=== PATIENT | female | born 1970 | race Caucasian/White ===

== ENCOUNTER 2018-09-05 13:23 | Emergency (ER) | payer BC ==
[2018-09-05 13:44] VITALS: BP 148/90
--- NOTE | 2018-09-05 14:04 | UC ---
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 WHILE ATTEMPTING TO RESCUE THE KITTEN IT TURNED AROUND AND BIT HER ON THE LEFT INDEX FINGER. SHE TOOK THE ANIMAL TO THE [facility] [place] UP TO DATE TETANUS. - History of Current Complaint Chief Complaint: UCBiteInjury Stated Complaint: CAT BITE Time Seen by Provider: 09/05/18 13:59 Hx Obtained From: Patient Hx Last Menstrual Period: 2 mo Severity Currently: Moderate Severity Initially: Moderate Pain Intensity: 0 Pain Scale Used: 0-10 Numeric Onset/Duration: Sudden Onset, Lasting Hours, Still Present Type of Bite: Wild Animal Has Animal Been Immunized?: No Character: Abrasion/Laceration Aggravating Factor(s): Nothing Alleviating Factor(s): Nothing Associated Signs And Symptoms: Negative: Fever, Erythema, Drainage, Swelling, Lymphadenopathy Hx of Bite: Provoked by: - TRYING TO RESCUE ANIMAL - Allergies/Home Medications Allergies/Adverse Reactions: Allergies Allergy/AdvReac Type Severity Reaction Status Date / Time Penicillins Allergy Unknown Verified 09/05/18 13:45 Reaction Details PMH/Surg Hx/FS Hx/Imm Hx Respiratory History: Asthma - Surgical History Surgical History: None Surgery Procedure, Year, and Place: [place] [facility] [place] [facility] [place] - Family History Known Family History: Positive: Non-Contributory - Social History Alcohol Use: Rare Substance Use Type: None Smoking Status (MU): Never Smoked Tobacco - Immunization History Most Recent Tetanus Shot: 2018 Review of Systems All Other Systems Reviewed And Are Negative: Yes Constitutional: Positive: Negative Skin: Positive: Other - ABRASION/CAT BITE LEFT DISTAL INDEX FINGER LATERAL SURFACE Respiratory: Positive: Negative Cardiovascular: Positive: Negative Gastrointestinal: Positive: Negative Musculoskeletal: Positive: Negative Physical Exam Triage Information Reviewed: Yes Appearance: Well-Appearing, No Pain Distress, Well-Nourished Vital Signs: Initial Vital Signs Temp 99.1 F 09/05/18 13:40 Pulse 99 09/05/18 13:40 Resp 16 09/05/18 13:40 BP 148/90 09/05/18 13:40 Pulse Ox 98 09/05/18 13:40 Vital Signs Reviewed: Yes Eyes: Positive: Conjunctiva Clear ENT: Positive: Hearing grossly normal Neck: Positive: Supple Respiratory: Positive: No respiratory distress, No accessory muscle use Cardiovascular: Positive: Pulses Normal Abdomen Description: Positive: Soft Musculoskeletal: Positive: ROM Intact, No Edema Neurological: Positive: Alert Psychological: Positive: Age Appropriate Behavior Skin: Positive: Other - 1CM ABRASION LEFT DISTAL INDEX FINGER LATERAL SURFACE Diagnostics - Radiology LEFT INDEX FINGER XRAY Radiology Interpretation Completed By: Radiologist - UNREMARKABLE Bite Injury Course/Dx - Course Course Of Treatment: PATIENT WITH PENICILLIN ALLERGY LISTED BUT STATES SHE IS NOT SURE IF SHE REALLY IS ALLERGIC TO PENICILLINS. HAS TAKEN AUGMENTIN IN THE PAST WITH NO PROBLEM SO WILL PRESCRIBE AGAIN TODAY. SPOKE TO THE HEALTH DEPARTMENT. KITTEN WILL BE MONITORED AND PATIENT WILL BE NOTIFIED IF ANY SIGNS OF ILLNESS. NO INDICATION TO BEGIN RABIES PROPHYLAXIS TODAY. - Differential Dx/Diagnosis Provider Diagnoses: CAT BITE LEFT INDEX FINGER Discharge - Sign-Out/Discharge Documenting (check all that apply): Patient Departure All imaging exams completed and their final reports reviewed: Yes - Discharge Plan Condition: Stable Disposition: HOME Prescriptions: Amoxicillin/Clavulanate TAB* [Augmentin TAB 875*] 875 mg PO BID #20 tab Patient Education Materials: Animal Bite (ED) Referrals: Stormy Deshpande MD [Primary Care Provider] - If Needed Additional Instructions: TAKE THE AUGMENTIN TWICE DAILY FOR THE FULL 10 DAYS TO PREVENT INFECTION. X- RAY TODAY UNREMARKABLE FOR FRACTURE. SEEK FOLLOW-UP IF YOU DEVELOP SPREADING REDNESS OF THE SKIN, PURULENT DRAINAGE, FEVER, INCREASED PAIN OR ANY OTHER CONCERNING SYMPTOMS. THE HEALTH DEPARTMENT/[facility] WILL MONITOR THE ANIMAL AND NOTIFY YOU IF ANY SIGNS OF ILLNESS. - Billing Disposition and Condition Condition: STABLE Disposition: Home
== END 2018-09-05 14:35 | disposition home or self-care (01) ==
LOC: UCEAST 13:23
DX: S60.471A Other superficial bite of left index finger, initial encounter (principal); Z88.0 Allergy status to penicillin; W55.01XA Bitten by cat, initial encounter; Y92.9 Unspecified place or not applicable
CPT/HCPCS: 73140; 99202; G0463

== ENCOUNTER 2024-03-30 19:35 | Observation (INO) ==
[2024-03-30 20:12] LABS: Urine Appearance Clear; Urine Bilirubin Negative (Negative); Urine Blood 1+ (Negative); Urine Color Colorless; Urine Glucose Negative (Negative); Urine Ketones Negative (Negative); Urine Nitrite Negative (Negative); Urine Protein Negative (Negative); Urine Specific Gravity 1.012 (1.002-1.030); Urine Urobilinogen Negative (Negative); Urine pH 5.5 (5.0-8.0)
[2024-03-30 20:20] LABS: Urine Bacteria Absent /HPF (Absent); Urine Red Blood Cell 1+(3-5/hpf) /HPF (0-Trace); Urine Squamous Epithelial Cell Present /HPF (Absent); Urine White Blood Cell 1+(6-10/hpf) /HPF (0-Trace)
[2024-03-30 20:54] LABS: ABS Basophils 0.1 10^3/uL (0.0-0.1); ABS Eosinophils 0.3 10^3/uL (0.0-0.5); ABS Lymphocytes 3.7 10^3/uL (1.0-4.8); ABS Monocytes 1.2 10^3/uL (0.0-0.9); ABS Neutrophils 4.4 10^3/uL (1.5-7.6); ABS Nucleated RBC 0.01 10^3/ul; Eosinophil % 3.1 %; Hematocrit 41.9 % (35-45); Hemoglobin 14.5 g/dL (11.5-14.3); Lymphocyte % 38.4 %; Mean Corpuscular Hemoglobin 32.3 pg (27-33); Mean Corpuscular Hgb Conc 34.5 g/dL (31-36); Mean Corpuscular Volume 93.6 fL (80-97); Mean Platelet Volume 6.9 fL (7.5-11.2); Nucleated Red Blood Cells % 0.1 %/100WBC (0.0-0.8); Platelet Count 288 10^3/uL (150-450); Red Blood Count 4.48 10^6/uL (3.63-4.92); Red Cell Distribution Width 12.7 % (12-17); White Blood Count 9.7 10^3/uL (3.8-11.8)
[2024-03-30 21:46] LABS: Albumin 4.5 g/dL (3.2-5.2); Albumin/Globulin Ratio 1.9 (1-3); C Reactive Protein 4.14 mg/L (<8.01); Calcium 9.3 mg/dL (8.6-10.3); Creatinine, Serum 1.56 mg/dL (0.51-0.95); Globulin 2.4 g/dL (2-4); Potassium 4.4 mmol/L (3.5-5.0); Total Bilirubin 0.5 mg/dL (0.2-1.0); Total Protein 6.9 g/dL (6.4-8.9); eGFR CKD-EPI 39.5 (>60)
[2024-03-30] MEDS: Lactated Ringers 1000 ml BAG 1,000 ML IV ONE (22:40)
[2024-03-30] MEDS: cefTRIAXone 1 gm/50 mL D5W 1 GM/50 ML BAG IV ONE (23:57)
[2024-03-31] MEDS: cefTRIAXone 1 gm/50 mL D5W 1 GM/50 ML BAG IV ONE (02:15)
[2024-03-31] MEDS ORDERED: Ondansetron 4 mg VIAL 2 MG/ML 2 ml VIAL IV PRN ×2 (03:47→14:07)
[2024-03-31] MEDS ORDERED: Morphine 2 MG/ML SYRINGE IV PRN (03:47)
[2024-03-31] MEDS: Lactated Ringers 1000 ml BAG 1,000 ML IV SCH ×2 (04:09→16:59)
[2024-03-31] MEDS ORDERED: HYDROmorphone 0.5 MG/0.5 ML SYRINGE IV PRN (05:19)
[2024-03-31 07:50] LABS: ABS Basophils 0.1 10^3/uL (0.0-0.1); ABS Eosinophils 0.1 10^3/uL (0.0-0.5); ABS Lymphocytes 2.4 10^3/uL (1.0-4.8); ABS Monocytes 0.8 10^3/uL (0.0-0.9); ABS Neutrophils 4.2 10^3/uL (1.5-7.6); Hematocrit 41.1 % (35-45); Hemoglobin 14.7 g/dL (11.5-14.3); Lymphocyte % 31.2 %; Mean Corpuscular Hgb Conc 35.7 g/dL (31-36); Mean Corpuscular Volume 92.5 fL (80-97); Platelet Count 254 10^3/uL (150-450); Red Blood Count 4.44 10^6/uL (3.63-4.92); Red Cell Distribution Width 12.2 % (12-17); White Blood Count 7.6 10^3/uL (3.8-11.8)
[2024-03-31 08:23] LABS: Creatinine, Serum 1.14 mg/dL (0.51-0.95); Potassium 3.7 mmol/L (3.5-5.0); eGFR CKD-EPI 57.6 (>60)
[2024-03-31] MEDS: Acetaminophen IV 1 GM/100ML 1,000 MG/100 ML BAG IV SCH (08:46)
[2024-03-31] MEDS ORDERED: Naloxone 0.4 mg VIAL 0.4 mg/ml 1 ml VIAL IV PRN (14:07)
[2024-03-31] MEDS ORDERED: Metoclopramide 5 MG/ML VIAL (10 mg) IV PRN (14:07)
[2024-03-31] MEDS ORDERED: fentaNYL 100 mcg/2 ml 50 MCG/ML VIAL IV PRN (14:07)
[2024-03-31] MEDS ORDERED: Iohexol 180 (CONTRAST) 10 ML SDV IV ONE (14:19)
[2024-03-31] MEDS ORDERED: Midazolam 2 mg/2 ml VIAL 1 mg/ml 2 ml VIAL (2 mg) ONE (14:36)
[2024-03-31] MEDS ORDERED: fentaNYL 100 mcg/2 ml 50 MCG/ML VIAL ONE (14:36)
[2024-03-31] MEDS ORDERED: NS 0.45% 1000 ml BAG 1,000 ML IV SCH (15:00)
[2024-03-31] MEDS: Acetaminophen IV 1 GM/100ML 1,000 MG/100 ML BAG IV ONE (16:51)
[2024-03-31] MEDS: Buffered Lidocaine 1% SYRIN 1 ml INTRADERM ONE (16:51)
[2024-03-31] MEDS: Scopolamine 1 mg/72hr PATCH TRANSDERM ONE (16:52)
[2024-03-31] MEDS ORDERED: Enoxaparin 40 MG/0.4 ML SYR SUBCUT SCH (18:00)
[2024-03-31] MEDS: Enoxaparin 40 MG/0.4 ML SYR SUBCUT SCH (21:53)
[2024-04-01] MEDS: cefTRIAXone 1 gm/50 mL D5W 1 GM/50 ML BAG IV ONE (05:45)
[2024-04-01 06:15] LABS: Hemoglobin 13.7 g/dL (11.5-14.3); Mean Corpuscular Hemoglobin 32.8 pg (27-33); Mean Corpuscular Hgb Conc 35.2 g/dL (31-36); Platelet Count 261 10^3/uL (150-450); Red Blood Count 4.19 10^6/uL (3.63-4.92); Red Cell Distribution Width 12.4 % (12-17)
[2024-04-01 07:22] LABS: Calcium 8.8 mg/dL (8.6-10.3); Creatinine, Serum 0.99 mg/dL (0.51-0.95); Magnesium 1.9 mg/dL (1.9-2.7); eGFR CKD-EPI 68.2 (>60)
[2024-04-01 10:07] VITALS: BP 146/82
== END 2024-04-01 13:15 | disposition home or self-care (01) ==
LOC: EDHOLD 19:35 → ED 19:35 → SUATTDRO 03-31 02:19 → MED 03-31 04:12
PROVIDERS: ADMIT Internal Medicine; ATTEND Student in an Organized Health Care Education/Training Program